=== PATIENT | female | born 1950 | race Caucasian/White ===

== ENCOUNTER 2019-07-21 05:23 | Day surgery (SDC) | payer MEDICARE ==
--- NOTE | 2019-07-18 11:18 | HP ---
PATIENT: GLADIS RENE MEDICAL RECORD: [id number] ACCOUNT: [id number] LOCATION:[facility] : 54 ADMISSION DATE: 07/21/19 PCP: HISTORY AND PHYSICAL EXAMINATION HISTORY OF PRESENT ILLNESS: Gladis is a 69-year-old. She has been having headaches and has an opacified right sphenoid, possibly mucocele, chronic changes there and nasal obstruction. She is being admitted for right sphenoidotomy. PAST MEDICAL HISTORY: Includes hypertension and heart disease. PAST SURGICAL HISTORY: Includes tubal ligation, carpal tunnel, and colon surgery for bleeding. CURRENT MEDICATIONS: Include hydroxychloroquine, loratadine, mometasone inhaler, vitamin D, valacyclovir, lisinopril, atenolol, hydrochlorothiazide, omeprazole, BuSpar. ALLERGIES: PENICILLIN, CODEINE, TETANUS VACCINE. PHYSICAL EXAMINATION: GENERAL: She is healthy-appearing, developmentally normal. FACE: Normal, symmetric, no lesions. EYES: Sclerae and conjunctivae are normal. EARS: Canals and TMs are normal. NOSE: No masses, polyps, or drainage. On endoscopic intranasal exam, she has large inferior turbinates, middle turbinates are normal. Medial to the superior turbinate. On the right side, there is a multilobulated polypoid tissue, almost translucent. The sphenoid ostia was not visible. There is no visible drainage. ORAL CAVITY AND OROPHARYNX: Tongue protrudes in midline. No lesions. NECK: No masses, no adenopathy. CHEST: Clear. CARDIOVASCULAR: Regular rate and rhythm, no murmur. EXTREMITIES: Normal. IMPRESSION: Right chronic sphenoid sinusitis, possibly mucocele or fungal sinusitis and headaches. She does have nasal obstruction, large inferior turbinates. PLAN: Right endoscopic sphenoidotomy and bilateral inferior turbinate reduction. TRANSINT:[id number] Voice Confirmation ID: [id number] DOCUMENT ID: [id number] HISTORY AND PHYSICAL [id number] ANJUGLADIS ALEN, SILVIO LEWIS at 1118 CC: [id number] DICTATION DATE: 07/17/19 0855 STAFF AUDITOR: 07/17/19 [id number] [place] [id number]
[~2019-07-21] VITALS: Ht 174 cm; Wt 128.2 kg
--- NOTE | ~2019-07-21 | OP ---
PATIENT NAME: EWELINA RENE MEDICAL RECORD: [id number] :54 [facility] DATE: SURGEON: SILVIO CARTER MD DATE OF OPERATION: 07/21/2019 PREOPERATIVE DIAGNOSES: Chronic right sphenoid sinusitis, nasal obstruction, turbinate hypertrophy and headaches. POSTOPERATIVE DIAGNOSES: Chronic right sphenoid sinusitis, nasal obstruction, turbinate hypertrophy and headaches. PROCEDURE: Right endoscopic sphenoidotomy, bilateral inferior turbinate reduction. SURGEON: Silvio Carter MD ANESTHESIA: General orotracheal. BLOOD LOSS: Less than 5 cc. SPECIMENS: Material from the right sphenoid sinus for cultures and pathology. NASAL PACKING: None. COMPLICATIONS: None. DISPOSITION: Recovery stable. FINDINGS: Right sphenoid sinus was full of some hard solid material, most of it was re peanut butter color, but still very dense and dry and some solid greenish black material consistent with fungal sinusitis. There was a little bit of purulent drainage at the ostia, but most of the sinus was full of dry material. DESCRIPTION OF PROCEDURE: She was brought to the operating room and placed in supine position, sedated and intubated by anesthesia. Nose was examined. Floor of the nose, inferior turbinates, lateral nasal wall on the right side were injected with a total of less than 1 cc of 1% lidocaine with 1:100,000 epinephrine. Three Afrin pledgets were placed on the right side packing all the way back to the sphenoid recess and two pledgets in the left side. The table was turned 90 degrees. She was positioned, prepped and draped in the usual fashion. Then, right Afrin pledgets were removed. The nose was examined. The inferior turbinate was outfractured with a Imperial elevator. Then, again with the scope, examined the nose. Inferior meatus was normal. The floor of the nose was normal. Septum was normal. Minimal deviation. The middle meatus and middle turbinate were normal. Nasal vault was normal. Superior meatus was normal and then medial to the superior turbinate, there was purulent drainage from the sphenoid ostia. I think some polypoid material or tissue there in the office on endoscopy, but there was none. The rest of the nasopharynx was normal. I took out the left-sided pledgets, examined the left side of the nose as well, it was totally unremarkable, but some septal deviation and spur to that left side. Then with a #7 suction and Luki trap, a punched into straight into the sphenoid ostia. Immediately got some material out, but then it plugged up, was able to flush that out with saline. It was dark green solid material. I used a 2 mm Kerrison punch to take out some bites inferiorly and medially to OPERATIVE REPORT [id number] EWELINA RENE enlarge the ostia and got it with a 9 suction and a Luki trap and suctioned out more of the same material. Solid chunks of material immediately would block up the suction, I had to flush it out with saline. Then, I looked in the sphenoid sinus with the scope, was able to easily get that in a large ostia that I created and basically just a solid and dry material packed all in the sinus. I removed a little bit of a central core with a #7 suction looking with the scope directly. It was really hard to break up this solid material even though rinsing it repeatedly with 60 cc syringe, flooding the sinus trying to irrigate this material out. It was very slow to get the material out, gently scraping the sides with the 9 suction just breaking material loose piece by piece and would not suction through the suction just taking out those pieces one at a time just carefully and slowly, debrided that sphenoid sinus. A very wide open ostia anteriorly that a 9 suction and the scope could easily be inserted into that sphenoid sinus. I then continued to rinse that out repeatedly. Then, with a [place], started on the inferior turbinates. We took down the inferior redundant portions, used suction cautery to stop any bleeding and they are outfractured with a Imperial elevator on both sides. I then went back to the sphenoid sinus, there was not much bleeding, but the sinus would fill up with some blood after that amount of time. I suctioned it out, rinsed it out repeatedly again and then even though it was not hardly any bleeding during the procedure, her blood pressure had been on the low side, so I went ahead and put some FloSeal in there to make sure she did not start bleeding when she woke up. Specimen were sent for culture and pathology. She was awakened, extubated, and transported to recovery in good condition. No complications. TRANSINT:[id number] Voice Confirmation ID: [id number] DOCUMENT ID: [id number] SILVIO CARTER MD CC: [id number] DICTATION DATE: 07/21/19 1036 EAR NOSE AND THROAT SPECIALIST: 07/21/19 1614 [facility] 07/21/19 [id number] [place] [id number]
[~2019-07-21 05:23] MED LIST: BUSPAR 15 MG TA15 MG PO; CLARITIN 10 MG10 MG PO; CYCLOBENZAPRINE5 MG PO; CYMBALTA60 MG PO; DULERA 200 MCG8.8 GM INH; HYDROCHLOROTHIA25 MG PO; HYDROXYCHLOROQ200 MG PO; LISINOPRIL20 MG PO; OMEPRAZOLE20 M1 PO; TENORMIN25 MG PO; VALTREX1000 MG PO; VITAMIN B-121000 MCG PO; VITAMIN D1000 UNI1 PO
[2019-07-21 05:57] LABS: ANION GAP 11.4 mmol/L (8-16); CALCIUM 9.9 mg/dL (8.5-10.1); CARBON DIOXIDE 26.7 mmol/L (21.0-32.0); CREATININE - SERUM 1.1 mg/dL (0.6-1.3); POTASSIUM - SERUM 4.1 mmol/L (3.5-5.1)
[2019-07-21] MEDS ORDERED: OMEPRAZOLE40 MG PO (06:14)
[2019-07-21 06:17] LABS: HEMATOCRIT 38.9 % (36.0-48.0); HEMOGLOBIN 11.4 g/dL (12-16); MCH 25.2 pg (26.0-34.0); MCHC 29.3 g/dL (31.0-37.0); MCV 86.1 fL (80.0-100.0); PLATELET COUNT 154 10x3/uL (130-400); RBC 4.52 10x6/uL (4.00-5.40); RDW 16.9 % (11.5-14.5); WBC 8.2 10x3/uL (4.8-10.8)
[2019-07-21 06:19] VITALS: BP 130/65; Ht 174 cm; Wt 128.2 kg
[2019-07-23 10:10] LABS: FUNGUS STAIN Final report (())
== END 2019-07-21 12:27 | disposition home or self-care (01) ==
LOC: D.OPS 05:23 → D.PAN 07:30 → D.OPS 07:30
PROVIDERS: Anesthesiology; ATTEND Otolaryngology
DX: J32.3 Chronic sphenoidal sinusitis (principal); J34.89 Other specified disorders of nose and nasal sinuses; J34.3 Hypertrophy of nasal turbinates; R51 Headache; I10 Essential (primary) hypertension